=== PATIENT | female | born 1965 | race Caucasian/White ===

== ENCOUNTER → 2020-05-13 12:07 | Outpatient (CLI) | payer OTHER, SELFPAY ==
--- NOTE | 2020-05-13 12:12 | DI.RAD.S_ITS ---
PROCEDURE: XR CHEST 2V INDICATIONS: cough TECHNIQUE: 2 views of the chest were acquired. COMPARISON: None. FINDINGS: Surgical changes and devices: None. Lungs and pleura: Lungs are clear. No pleural effusions or pneumothorax. Mediastinum: Mediastinal contours are normal. Heart size is normal. Bones and chest wall: No suspicious bony abnormalities. Soft tissues appear unremarkable. IMPRESSION: No acute cardiopulmonary process is evident. Dictated by: Jeremiah Larkin M.D. on 05/13/2020 at 11:48 Approved by: Jeremiah Larkin M.D. on 05/13/2020 at 11:49
[2020-05-15 00:36] LABS: COVID19 Sendout Not Detected (Not Detected)
== END ==
PROVIDERS: PCP Internal Medicine; Referring Provider Physician Assistant; Visit Provider Physician Assistant
DX: Z20.828 Contact with and (suspected) exposure to other viral communicable diseases (principal); Z11.9 Encounter for screening for infectious and parasitic diseases, unspecified; R05 Cough
CPT/HCPCS: 71046; 87635

== ENCOUNTER → 2020-11-05 10:13 | Outpatient (CLI) | payer OTHER, SELFPAY ==
[2020-11-05] MEDS: COVID-19 VACC #1, MRNA(MOD) 100 MCG/0.5 ML VIAL IM (10:25)
== END ==
PROVIDERS: PCP Internal Medicine; Visit Provider Internal Medicine
DX: Z23 Encounter for immunization (principal)
CPT/HCPCS: 0011A; 91301

== ENCOUNTER → 2020-12-03 10:09 | Outpatient (CLI) | payer OTHER, SELFPAY ==
[2020-12-03] MEDS: COVID-19 VACC #2, MRNA(MOD) 100 MCG/0.5 ML VIAL IM (10:17)
== END ==
PROVIDERS: PCP Internal Medicine; Visit Provider Internal Medicine
DX: Z23 Encounter for immunization (principal)
CPT/HCPCS: 0012A; 91301

== ENCOUNTER → 2021-07-12 10:41 | Outpatient (CLI) | payer OTHER, SELFPAY ==
--- NOTE | 2021-07-12 10:45 | DI.RAD.S_ITS ---
PROCEDURE: XR CLAVICLE RT INDICATIONS: right clavicle/shoulder injury and pain TECHNIQUE: 2 views of the clavicle were acquired. COMPARISON: None. FINDINGS: Bones: No fractures or dislocations. No suspicious bony lesions. Moderate periarticular osteophyte formation at the acromioclavicular joint. Mild periarticular osteophyte formation at the glenohumeral joint. Soft tissues: No suspicious soft tissue calcifications. IMPRESSION: No acute fracture. No osseous lesion. If symptoms and/or clinical suspicion for pathology persist, further assessment with repeat, or advanced imaging (e.g., CT, MRI, or bone scan) may be helpful for further assessment. Dictated by: Sherly Mckeon M.D. on 07/12/2021 at 13:30 Approved by: Sherly Mckeon M.D. on 07/12/2021 at 14:00
--- NOTE | 2021-07-12 10:45 | DI.RAD.S_ITS ---
PROCEDURE: XR SHOULDER RT MIN 2V INDICATIONS: right clavicle/shoulder injury and pain TECHNIQUE: 3 views of the shoulder were acquired. COMPARISON: None. FINDINGS: Bones: No fractures or dislocations. No suspicious bony lesions. Visualized ribs appear intact. Mild acromioclavicular joint osteoarthritis. Soft tissues: No suspicious soft tissue calcifications. IMPRESSION: No fracture. No acute osseous lesion. If symptoms and/or clinical suspicion for pathology persists, further assessment with repeat radiographs (7-10 days) or advanced imaging (e.g. CT, MRI or bone scan) should be considered. Dictated by: Tonya Juarez MD, PhD on 07/12/2021 at 12:43 Approved by: Tonya Juarez MD, PhD on 07/12/2021 at 12:45
== END ==
PROVIDERS: PCP Internal Medicine; Referring Provider Physician Assistant; Visit Provider Physician Assistant
DX: S49.91XA Unspecified injury of right shoulder and upper arm, initial encounter (principal); M89.8X1 Other specified disorders of bone, shoulder; M25.511 Pain in right shoulder
CPT/HCPCS: 73000; 73030

== ENCOUNTER → 2024-05-22 16:59 | Outpatient (CLI) | payer MEDICARE, OTHER, SELFPAY ==
[2024-05-22 18:25] LABS: Influenza A - CEPHEID Flu A NEGATIVE (NEGATIVE); Influenza B - CEPHEID Flu B NEGATIVE (NEGATIVE); Respiratory Syncytial Virus Negative (Negative)
[2024-05-22 18:45] LABS: COVID-19 CEPHEID 4-PLEX PCR POSITIVE (Negative)
== END ==
PROVIDERS: PCP Internal Medicine; Visit Provider Physician Assistant Medical
DX: J02.9 Acute pharyngitis, unspecified (principal)
CPT/HCPCS: 0241U

== ENCOUNTER → 2024-06-30 14:09 | Outpatient (CLI) | payer MEDICARE, SELFPAY | PROVIDERS: PCP Internal Medicine; Visit Provider Student in an Organized Health Care Education/Training Program | DX: R39.15 Urgency of urination (principal) | CPT/HCPCS: 87077; 87086 ==

== ENCOUNTER → 2025-01-18 13:50 | Outpatient (CLI) | payer MEDICARE, OTHER, SELFPAY | PROVIDERS: PCP Internal Medicine; Visit Provider Registered Nurse | DX: R30.0 Dysuria (principal) | CPT/HCPCS: 81002; 87077; 87086; 87147 ==

== ENCOUNTER 2025-05-09 13:35 | Emergency (ER) | payer MEDICARE, OTHER, SELFPAY ==
[2025-05-09 13:37] VITALS: BP 153/65; PULSE 66; RESP 20; TEMP 37.1; O2SAT 95; BMI 36.1
--- NOTE | 2025-05-09 13:43 | EKG_ITS ---
[address] [address] Test Date: 2025-05-09 Pat Name: Lisbet Monroe Department: [facility] Room: Gender: Female Family Therapist: WANG : 1965 Requested By: Order Number: [id number] Reading MD: Donal Wilcox Measurements Intervals [place] Rate: 74 P: 30 ID: [id number] QRS: -25 QRSD: 94 T: 39 QT: 424 QTc: 470 Interpretive Statements Sinus rhythm with occasional premature ventricular complexes Inferior infarct , age undetermined Electronically Signed On 05-22-2025 8:13:20 PDT by Donal Wilcox
--- NOTE | 2025-05-09 13:52 | DI.CT.S_ITS ---
PROCEDURE: CT CHEST W CON INDICATIONS: chest pain, lymphangio leiomomatosis of lungs TECHNIQUE: After the administration of intravenous contrast, 5 mm thick sections acquired from the pulmonary apices to the posterior costophrenic angles. 1 mm axial lung, 5 mm thick coronal and sagittal reformats and 7 mm axial MIP were acquired. For radiation dose reduction, the following was used: automated exposure control, adjustment of mA and/or kV according to patient size. COMPARISON: None. FINDINGS: Image quality: Diagnostic. Lower Neck: No enlarged lymph nodes. Thyroid: No thyroid nodules which require sonographic follow up, per consensus guidelines. Axillae: No enlarged lymph nodes. Chest Wall: Unremarkable. Bones: Unremarkable. Lungs and Pleura: No pneumothorax or pleural effusions. No consolidation or suspicious nodules. . Bilateral thin walled air-filled cysts of varying size consistent with given history of lymphangioleiomyomatosis. Heart: Heart size is normal. No pericardial effusion. Thoracic Vessels: The aorta and pulmonary arteries demonstrate normal size. Mediastinum and Jennifer: No enlarged lymph nodes. Esophagus: No wall thickening. No hiatal hernia. Upper Abdomen: Visualized upper abdomen solid organs and bowel loops appear normal. Cholecystectomy clips IMPRESSION: Bilateral thin walled air-filled pulmonary cysts consistent with given history of lymphangioleiomyomatosis. No acute findings. No effusion or pneumothorax. Approved by: Abilio Martin M.D. on 05/09/2025 at 13:29
[2025-05-09 14:06] LABS: Add Manual Diff / Slide Review NO; Hematocrit 45.0 % (36-46); Hemoglobin 15.6 g/dL (12.0-16.0); Lymphocytes Absolute Auto 2000 /uL (1100-4500); Mean Corpuscular HGB Conc 34.6 % (30-36); Mean Corpuscular Hemoglobin 30.2 PG (26-34); Mean Corpuscular Volume 87.2 fL (80-100); Platelet Count 202 X10^3/uL (150-400)
[2025-05-09 14:14] LABS: INR 1.0 (0.9-1.3); Prothrombin Time 10.9 SECONDS (9.4-12.5)
[2025-05-09 14:16] LABS: PTT Partial Thromboplastin Tim 38 SECONDS (25.1-36.5)
[2025-05-09 14:18] LABS: Alanine Aminotransferase 18 IU/L (<35); Albumin 4.9 g/dL (3.5-5.0); Albumin Globulin Ratio 1.4 (1.0-2.8); Alkaline Phosphatase 63 U/L (38-126); Blood Urea Nitrogen 22 mg/dL (7-17); Calcium 9.4 mg/dL (8.4-10.2); Carbon Dioxide 24 mmol/L (22-32); Chloride 105 mmol/L (98-107); Creatine Kinase 164 U/L (30-135); Estimated Glomerular Filt Rate > 60 mL/min (>60); Globulin 3.4 g/dL (1.7-4.1); Glucose 91 mg/dL (70-99); HEMOLYSIS 23 (0-50); Lipase 206 U/L (23-300); Magnesium 1.9 mg/dL (1.6-2.3); Potassium 4.4 mmol/L (3.4-5.1); Sodium 139 mmol/L (137-145); Total Protein 8.3 g/dL (6.3-8.2)
[2025-05-09 14:21] VITALS: BP 129/62; PULSE 66; RESP 26; O2SAT 95
[2025-05-09] MEDS: ASPIRIN 81 MG CHEW TAB 324 MG PO (14:27)
[2025-05-09 14:29] LABS: NT-proBNP (BNP-Adult 18+) 72 pg/mL (<125); Troponin I < 0.012 ng/mL (0.01-0.034)
[2025-05-09 14:30] VITALS: BP 118/65; PULSE 70; RESP 16; O2SAT 96
[2025-05-09 15:00] VITALS: BP 115/55; PULSE 71; RESP 15; O2SAT 94
[2025-05-09 15:30] VITALS: BP 117/70; PULSE 67; RESP 27; O2SAT 96
[2025-05-09 16:00] VITALS: BP 125/73; PULSE 71; RESP 19; O2SAT 94
--- NOTE | 2025-05-09 16:38 | ED.CHESTPAIN ---
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 She has home O2 for exertion and with sleep. She has a history of heart failure with preserved ejection fraction who notes that over the last week she has been having increasing chest pain more in the left side. Typically her chest pain is a 2/10 in related to her chronic lung disease. At times she has had 7/10 pain and it has been worse with exertion. She notes that she has had small internal blebs rupture without pneumothorax and the last CT scans did not show significant superficial blebs that might cause pneumothorax but that is certainly remains within the realm of possibility. She comes in for further evaluation. No recent fevers, no change to her chronic cough and there was no productivity with the cough. No abdominal pain Related Data Home Medications ?Medication ?Instructions ?Recorded ?Confirmed hydrochlorothiazide 25 mg tablet 25 mg PO DAILY 05/13/20 05/22/24 losartan 100 mg tablet 100 mg PO DAILY 05/13/20 05/22/24 dapagliflozin propanediol 10 mg 10 mg PO DAILY 05/22/24 05/22/24 tablet (Farxiga) rosuvastatin 20 mg tablet 20 mg PO DAILY 06/30/24 01/18/25 fluticasone propionate 115 2 puff inhalation BID 01/18/25 01/18/25 mcg-salmeterol 21 mcg/actuation HFA inhaler (Advair HFA) metformin 500 mg tablet,extended 500 mg PO BID 01/18/25 01/18/25 release 24 hr spironolactone 25 mg tablet 25 mg PO DAILY 01/18/25 01/18/25 tirzepatide 2.5 mg/0.5 mL mg SUBCUT 01/18/25 01/18/25 subcutaneous pen injector (Rosa) torsemide 20 mg tablet 20 mg PO DAILY 01/18/25 01/18/25 Previous Rx's ?Medication ?Instructions ?Recorded phenazopyridine 100 mg tablet 100 mg PO TID PRN pain 6 doses #6 07/02/24 (Pyridium) tabs fluconazole 150 mg tablet 150 mg PO Q3D 2 doses #2 tabs 01/18/25 Allergies Allergy/AdvReac Type Severity Reaction Status Date / Time erythromycin base Allergy swelling Verified 05/09/25 13:49 of eyes succinylcholine Allergy severe Verified 05/09/25 13:49 muscle cramping Review of Systems Review of Systems Narrative: Pertinent positive and negative findings as per HPI Patient History Medical History (Updated 05/09/25 @ 18:50 by Poppy Del Rio MD) Heart failure with preserved ejection fraction Lymphangioleiomyomatosis Social History Smoking Status: Never smoker Smoking Status: Never smoker Exam Initial Vital Signs Initial Vital Signs: Vital Signs Temperature 98.8 F 05/09/25 13:37 Pulse Rate 66 05/09/25 13:37 Respiratory Rate 20 05/09/25 13:37 Blood Pressure 153/65 H 05/09/25 13:37 Pulse Oximetry 95 05/09/25 13:37 Oxygen Delivery Method Room Air 05/09/25 13:37 General: Healthy appearing, in no acute distress. Able to give a complete and coherent history. Well-nourished well-developed HEENT: Moist mucous membranes, normal sclera with reactive pupils, Neck: No JVD, Respiratory: Lungs with scattered crackles, no rhonchi, minor wheezing, able to speak in full sentences, no respiratory distress, no retractions Cardiac: Regular rate and rhythm no murmurs no bruits Abdomen: Soft, nontender, no rebound or guarding, no flank pain Skin: Warm and dry, no rashes Neurologic: Grossly neurologically intact with no obvious asymmetries or abnormalities Extremities: No trauma, well perfused Psych: Cooperative, appropriate insight and affect Course Orders Ordered: ED Orders 05/09/25 13:39 EKG-12 Lead Stat 05/09/25 13:52 CT chest w con Stat 05/09/25 13:58 Complete Blood Count AUTO DIFF Stat Comprehensive Metabolic Panel Stat Lipase Stat Magnesium Stat NT-proBNP (BNP-Adult 18+) Stat PTT Partial Thromboplastin Rosendo Stat Prothrombin Time INR Stat Troponin & CK Cardiac Panel Stat Morphine Sulfate (Morphine 2 Mg/Ml Inj) 2 mg IV Q5MIN PRN PRN Reason: Chest Pain Nitroglycerin (Nitroglycerin 0.4 Mg Sl Tab) 0.4 mg SL [id number] PRN PRN Reason: Chest Pain Discontinued Medications Aspirin (Aspirin 81 Mg Chew Tab) 324 mg PO NOW ONE Stop: 05/09/25 13:40 Last Admin: 05/09/25 14:27 Dose: Not Given Documented By: JULIO Aspirin (Aspirin 81 Mg Chew Tab) 324 mg PO NOW ONE Stop: 05/09/25 13:53 Last Admin: 05/09/25 14:27 Dose: 324 mg Documented By: JULIO Vital Signs Vital signs: Vital Signs - 8 hr 05/09/25 13:37 05/09/25 14:21 05/09/25 14:30 Temperature 98.8 F Pulse Rate 66 66 70 Respiratory Rate 20 26 H 16 Blood Pressure 153/65 H 129/62 118/65 Pulse Oximetry 95 95 96 Oxygen Delivery Method Room Air 05/09/25 15:00 05/09/25 15:30 05/09/25 16:00 Temperature Pulse Rate 71 67 71 Respiratory Rate 15 27 H 19 Blood Pressure 115/55 L 117/70 125/73 Pulse Oximetry 94 96 94 Oxygen Delivery Method Room Air MDM - Chest Pain Lab Data 05/09/25 13:58 05/09/25 13:58 Labs: Lab Results 05/09/25 Range/Units 13:58 WBC 7.7 (4.5-11.0) X10^3/uL RBC 5.16 (4.0-5.2) X10^6/uL Hgb 15.6 (12.0-16.0) g/dL Hct 45.0 (36-46) % MCV 87.2 (80-100) fL MCH 30.2 (26-34) PG MCHC 34.6 (30-36) % RDW 14.4 (11.6-14.8) % Plt Count 202 (150-400) X10^3/uL Neut % (Auto) 64.3 (50-75) % Lymph % (Auto) 26.0 (25-40) % [place] % (Auto) 6.5 (3-14) % Eos % (Auto) 2.4 (2-4) % Baso % (Auto) 0.8 (0-2) % Neut # (Auto) 4900 (3874-6987) /uL Lymph # (Auto) 2000 (6330-2122) /uL [place] # (Auto) 500 (0-900) /uL Eos # (Auto) 200 (0-450) /uL Baso # (Auto) 100 (0-100) /uL PT 10.9 (9.4-12.5) SECONDS INR 1.0 (0.9-1.3) APTT 38 H (25.1-36.5) SECONDS Sodium 139 (137-145) mmol/L Potassium 4.4 (3.4-5.1) mmol/L Chloride 105 (98-107) mmol/L Carbon Dioxide 24 (22-32) mmol/L BUN 22 H (7-17) mg/dL Creatinine 0.91 (0.52-1.04) mg/dL Estimated GFR > 60 (>60) mL/min BUN/Creatinine Ratio 24.2 H (6-22) Glucose 91 (70-99) mg/dL Calcium 9.4 (8.4-10.2) mg/dL Magnesium 1.9 (1.6-2.3) mg/dL Total Bilirubin 0.7 (0.2-1.3) mg/dL AST 28 (14-36) IU/L ALT 18 (<35) IU/L Alkaline Phosphatase 63 (38-126) U/L Total Creatine Kinase 164 H (30-135) U/L Troponin I < 0.012 (0.01-0.034) ng/mL NT-Pro-B Natriuret Pep 72 (<125) pg/mL Total Protein 8.3 H (6.3-8.2) g/dL Albumin 4.9 (3.5-5.0) g/dL Globulin 3.4 (1.7-4.1) g/dL Albumin/Globulin Ratio 1.4 (1.0-2.8) Lipase 206 (23-300) U/L [facility] Narrative Medical decision making narrative: 60-year-old gentleman with a complex lung disease chronic pain, high-risk for pneumothorax as well as acute coronary syndrome. 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 She is extraordinarily well-versed with her disease, complications and treatments. She is concerned that there has been more pain comes in for further evaluation. Chest x-ray is going to be minimally helpful so CT scan with contrast of the chest was performed. No evidence of pneumothorax, infiltrate worsening of her chronic lung disease. Labs do not suggest infection, renal failure, kidney failure, electrolyte abnormalities. No congestive heart failure Patient has declined pain medication Findings reviewed with the patient, she is fine with using aspirin for pain control at this point she does have narcotic available at home but prefers to use this for ?when it is really bad?. No signs of impending respiratory failure no indication for additional workup or hospitalization at this time she is safe for discharge Discharge Plan Departure Patient Disposition: Home Clinical Impression: Atypical chest pain Instructions: DI for Atypical Chest Pain Activity Restrictions/Additional Instructions: Thank you for coming in today Your workup was actually quite reassuring. I see no life-threatening explanation for the chest pain that you are experiencing. Does not look like you of the pneumothorax, there is no extra air throughout the center portion of your chest, the mediastinum. No obvious lung infection, kidney function liver function all seem appropriate. There was no evidence of heart attack or acute coronary syndrome At this time I think it is safe to continue to use aspirin to treat your chest pain. I would follow up with your registered safety engineer regarding the persistent pain to see if they have additional recommendations on follow up or specific treatment that may be beneficial to you. Prescriptions: No Action losartan 100 mg tablet 100 mg PO DAILY hydrochlorothiazide 25 mg tablet 25 mg PO DAILY dapagliflozin propanediol [Farxiga] 10 mg tablet 10 mg PO DAILY rosuvastatin 20 mg tablet 20 mg PO DAILY metformin 500 mg tablet extended release 24 hr 500 mg PO BID torsemide 20 mg tablet 20 mg PO DAILY fluticasone propion-salmeterol [Advair HFA] 115-21 mcg/actuation HFA aerosol inhaler 2 puff inhalation BID spironolactone 25 mg tablet 25 mg PO DAILY Mounjaro 2.5 mg/0.5 mL pen injector SUBCUT Patient Comments: [NO ORIGINAL SIG] fluconazole 150 mg tablet 150 mg PO Q3D Qty: 2 0RF Rx Instructions: may repeat second dose 72 hrs after first dose if symptoms persist phenazopyridine [Pyridium] 100 mg tablet 100 mg PO TID PRN (Reason: pain) Qty: 6 0RF Referrals: Adry Jamison MD [Primary Care Provider, Internal Medicine] Stand Alone Forms: Patient Portal/API
== END 2025-05-09 17:20 | disposition home or self-care (01) ==
PROVIDERS: Emergency Provider Emergency Medicine; PCP Internal Medicine
DX: R07.89 Other chest pain (principal); D18.1 Lymphangioma, any site; D38.1 Neoplasm of uncertain behavior of trachea, bronchus and lung; D41.02 Neoplasm of uncertain behavior of left kidney; D41.01 Neoplasm of uncertain behavior of right kidney; Z86.79 Personal history of other diseases of the circulatory system
CPT/HCPCS: 36415; 71260; 80053; 82550; 83690; 83735; 83880; 84484; 85025; 85610; 85730; 93005; 99284; Q9967